=== PATIENT | male | born 1985 ===

== ENCOUNTER 2018-01-23 20:15 | Emergency (ER) | payer OTHER ==
[~2018-01-23] VITALS: Ht 185.4 cm; Wt 89.8 kg
[2018-01-23 20:18] VITALS: BP_SYST 151
[2018-01-23 21:17] VITALS: BP_SYST 149
== END 2018-01-23 21:17 ==
LOC: SED 20:15
DX: Z02.89 Encounter for other administrative examinations (principal); E11.9 Type 2 diabetes mellitus without complications; I10 Essential (primary) hypertension
CPT/HCPCS: 99283